=== PATIENT | female | born 1975 | race Hispanic/Latino ===

== ENCOUNTER 2018-06-24 09:38 | Outpatient (CLI) | payer OTHER ==
--- NOTE | 2018-06-25 07:03 | EKG ---
Test Reason : Blood Pressure : / mmHG Vent. Rate : 085 BPM Atrial Rate : 085 BPM P-R Int : 134 ms QRS Dur : 076 ms QT Int : 378 ms P-R-T Axes : 046 076 234 degrees QTc Int : 449 ms Normal sinus rhythm Abnormal ECG No previous ECGs available Confirmed by LUCÍA CAAL ([id number] on 06/25/2018 7:03:38 AM Referred By: AFTAB FERRIS Confirmed By:LUCÍA CAAL
== END 2018-06-24 09:39 | disposition home or self-care (01) ==
LOC: EKG 09:38
PROVIDERS: ATTEND Internal Medicine Hematology & Oncology
DX: C92.10 Chronic myeloid leukemia, BCR/ABL-positive, not having achieved remission (principal); R94.31 Abnormal electrocardiogram [ECG] [EKG]
CPT/HCPCS: 93005; 93010

== ENCOUNTER 2019-04-12 07:42 | Day surgery (SDC) | payer SELFPAY ==
[2019-04-12] MEDS ORDERED: Sodium Chloride 0.9% 20 ML ONE (08:40)
[2019-04-12 09:41] VITALS: BP 128/77; TEMP 97.9
== END 2019-04-12 12:58 | disposition home or self-care (01) ==
LOC: ONC/OP 07:42
PROVIDERS: ATTEND Internal Medicine Hematology & Oncology
DX: D50.0 Iron deficiency anemia secondary to blood loss (chronic) (principal); C92.10 Chronic myeloid leukemia, BCR/ABL-positive, not having achieved remission
CPT/HCPCS: 96365

== ENCOUNTER 2019-04-19 07:12 | Day surgery (SDC) | payer SELFPAY ==
[2019-04-19 08:50] VITALS: BP 99/66; TEMP 97.7
[2019-04-19] MEDS ORDERED: Sodium Chloride 0.9% 20 ML ONE (09:00)
== END 2019-04-19 10:14 | disposition home or self-care (01) ==
LOC: ONC/OP 07:12
PROVIDERS: ATTEND Internal Medicine Hematology & Oncology
DX: D50.0 Iron deficiency anemia secondary to blood loss (chronic) (principal); C92.10 Chronic myeloid leukemia, BCR/ABL-positive, not having achieved remission
CPT/HCPCS: 96365; J1756; J3490

== ENCOUNTER 2019-06-13 08:56 | Day surgery (SDC) | payer OTHER, SELFPAY ==
[~2019-06-13 08:56] MED LIST: Sodium Chloride 0.9% 20 ML ONE
[2019-06-13 09:20] VITALS: BP 101/50; TEMP 97.7
== END 2019-06-13 11:32 | disposition home or self-care (01) ==
LOC: ONC/OP 08:56
PROVIDERS: ATTEND Internal Medicine Hematology & Oncology
DX: D50.0 Iron deficiency anemia secondary to blood loss (chronic) (principal); C92.10 Chronic myeloid leukemia, BCR/ABL-positive, not having achieved remission
CPT/HCPCS: 96365; J1756; J3490

== ENCOUNTER 2019-06-20 08:28 | Day surgery (SDC) | payer SELFPAY ==
[2019-06-20 08:58] VITALS: TEMP 97.6
[2019-06-20 10:11] VITALS: BP 144/100
== END 2019-06-20 11:30 | disposition home or self-care (01) ==
LOC: ONC/OP 08:28
PROVIDERS: ATTEND Internal Medicine Hematology & Oncology
DX: D50.0 Iron deficiency anemia secondary to blood loss (chronic) (principal); C92.10 Chronic myeloid leukemia, BCR/ABL-positive, not having achieved remission
CPT/HCPCS: 96365; 96366; J1756; J3490